=== PATIENT | female | born 1975 | race Caucasian/White ===

== ENCOUNTER 2018-12-26 07:17 | Day surgery (SDC) | payer OTHER ==
[2018-12-06 16:48] VITALS: BMI 36.3
--- NOTE | 2018-12-26 07:12 | HP ---
History & Physical Update - History History: No Change - Physical Physical: No Change - Assessment Assessment: No Change - Plan Plan: No Change (No change in HP)
[~2018-12-26 07:17] MED LIST: ACETAMINOPHEN 325 MG TABLET (FP) PO PRN; IBUPROFEN 400 MG TABLET (FP) PO PRN
[2018-12-26] MEDS ORDERED: oxyCODONE HCL 5 MG TABLET PO PRN (09:36)
[2018-12-26] MEDS ORDERED: DESFLURANE GAS 240 ML BOTTLE IH ONE (09:38)
[2018-12-26] MEDS ORDERED: LACTATED RINGERS SOLUTION 1,000 ML IV SCH (09:45)
[2018-12-26] MEDS ORDERED: MIDAZOLAM HCL 2 MG/2 ML SINGLE DOSE VIAL ONE (09:49)
[2018-12-26] MEDS ORDERED: LIDOCAINE HCL/PF 2% SDV 5ML VIAL ONE (09:49)
[2018-12-26] MEDS ORDERED: PROPOFOL 20 ML ONE (09:49)
[2018-12-26] MEDS ORDERED: fentaNYL CITRATE 250 MCG/5 ML VIAL ONE (09:51)
[2018-12-26] MEDS ORDERED: ONDANSETRON 4 MG/2 ML VIAL IVPUSH PRN (09:57)
[2018-12-26] MEDS ORDERED: IBUPROFEN 800 MG/8 ML IJ IVPB PRN (09:57)
[2018-12-26] MEDS ORDERED: DEXAMETHASONE SOD PHOSPHATE 4 MG/1 ML VIAL ONE (10:49)
--- NOTE | 2018-12-26 11:11 | HP ---
Satellite [facility] - Chief Complaint Chief Complaint: Submucosal myoma History Source: Patient - Past Medical History Allergies/Adverse Reactions: Allergies Allergy/AdvReac Type Severity Reaction Status Date / Time No Known Allergies Allergy Verified 12/06/18 16:48 ...LMP: 11/12/18 ...LMP Comment: heavy - Current Medications Current Medications: Home Medications Medication Instructions Recorded Vitamin D3 - 50,000 iu PO DAILY 12/06/18 Ibuprofen [Motrin -] 600 mg PO QID #28 tablet 12/26/18 Satellite Physical Exam - Physical Examination Vital Signs: Vital Signs Period Temp Pulse Resp BP Sys/James Pulse Ox Last 24 Hr 98.2 F 78 20 132/96 99 General Appearance: Well Nourished, Well Developed ENT: Clear Lung: Clear to auscultation Heart: Regular rate & rhythm Breasts: Soft, Non-Tender Abdomen: Soft Extremities: No edema Pelvic Exam: Within normal limits External Genitalia, Within normal limits Vagina, Within normal limits Cervix, Within normal limits [place], Other Uterus (polyps and submucosal myomas) Neurological: Intact, Alert, Oriented Satellite Impression/Plan - Impression/Plan Impression: Submucosal myomas. leiomymaous uterus Operative Procedure: Hysteroscopic myomectomy. Suction DC Date to be Performed: 12/26/18
[2018-12-26] MEDS ORDERED: IBUPROFEN 800 MG/8 ML IJ IVPB ONE (12:03)
[2018-12-26 12:58] VITALS: TEMP 98
[2018-12-26 16:14] VITALS: BP 123/78; PULSE 78
--- NOTE | 2018-12-26 21:38 | OP ---
DATE OF OPERATION: 12/26/2018 PREOPERATIVE DIAGNOSES: Submucosal myoma, endometrial polyps. OPERATION: Hysteroscopic myomectomy, suction dilation and curettage. POSTOPERATIVE DIAGNOSES: Submucosal myoma, endometrial polyps. SURGEON: Cheyenne Cole MD ESTIMATED BLOOD LOSS: 10 mL. PROCEDURE: The patient was taken to the operating room, placed in dorsal lithotomy position, prepped and draped in usual sterile fashion. Timeout was performed in accordance with hospital regulation. Speculum was placed in the vagina, anterior lip of the cervix grasped with single-toothed tenaculum. The cervix was then dilated to accommodate the operative hysteroscope. Hysteroscopic myomectomy was performed. Endometrial polyps were seen and submucosal myoma in the posterior aspect of the uterus as well as in the fundal area. Cautery and cutting of the myoma was done, followed by suction D and C. Contents were submitted. Hemostasis achieved. Suction D and C was performed. All instruments were then removed. Patient tolerated the procedure well and was taken to the recovery room in stable condition. CHEYENNE COLE M.D. [id number]
--- NOTE | 2018-12-27 13:36 | PATH ---
Surgical Pathology Report Patient Name: AARON STEWART [facility]. Rec. #: [id number] /Age/Gender: 1975 (Age: 43) / F Account: [id number] Location: [facility] SURGICAL Taken: 12/26/2018 Received: 12/26/2018 Reported: 12/27/2018 Physicians: Erinn Cole M.D. Specimen(s) Received MYOMA AND POLYPS Clinical History Submucosal myoma Final Diagnosis MYOMA AND POLYPS, EXCISION: ENDOMETRIAL POLYP SEPARATE FRAGMENTS OF SECRETORY TYPE ENDOMETRIUM AND SUBJACENT SMOOTH MUSCLE BUNDLES, SUGGESTIVE OF SUBMUCOSAL LEIOMYOMA. Electronically Signed Janett Lugo M.D. Gross Description Received in formalin labeled "myoma and polyps," is a 4.0 x 2.7 x 0.3 cm aggregate of [place], soft tissue and rubbery tissue fragments. The formalin is filtered and the specimen is entirely submitted in 3 cassettes. DL/12/26/2018 saudi/12/26/2018
== END 2018-12-26 14:00 | disposition home or self-care (01) ==
LOC: JASU-SURG 07:17
PROVIDERS: ATTEND Obstetrics & Gynecology
PROC: 0UDB7ZX Extraction of Endometrium, Via Natural or Artificial Opening, Diagnostic (ICD-10-PCS; 2018-12-26)
PROC: 0UJD8ZZ Inspection of Uterus and Cervix, Via Natural or Artificial Opening Endoscopic (ICD-10-PCS; 2018-12-26)
PROC: 0UB98ZZ Excision of Uterus, Via Natural or Artificial Opening Endoscopic (ICD-10-PCS; principal; 2018-12-26 09:30)
PROC: 0UB97ZX Excision of Uterus, Via Natural or Artificial Opening, Diagnostic (ICD-10-PCS; 2018-12-26 09:30)
DX: D25.0 Submucous leiomyoma of uterus (principal); N84.0 Polyp of corpus uteri
CPT/HCPCS: 36415; 84703; 86850; 86900; 86901; 88305-TC; 94760